=== PATIENT | female | born 1995 | race Caucasian/White ===

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

== ENCOUNTER 2017-07-18 15:23 | Emergency (ER) | payer SELFPAY ==
[2017-07-18 15:33] VITALS: BP 110/65
--- NOTE | 2017-07-18 15:52 | EDM.PDOC ---
<Jody Gallagher - Last Filed: 07/18/17 15:46> ED HPI GENERAL MEDICAL PROBLEM - General Chief Complaint: Lower Extremity Injury/Pain Stated Complaint: DOOR FELL ON HER TOE Time Seen by Provider: 07/18/17 15:43 Source of Information: Reports: Patient History Limitations: Reports: No Limitations - History of Present Illness INITIAL COMMENTS - FREE TEXT/NARRATIVE: Patient is a 22 YO female who presents today after a door fell on her right big toe. She states they were moving the door when it slipped. She states she has limited range of motion of the toe. The pain is located over the distal metatarsal of the big toe and into the MTP joint. She denies pain to other areas of the foot. She was able to ambulate into the ER on her own. She did not take anything for pain prior to arrival and she does not want anything for pain at this time. Right 1-Hallux Pain Score (Numeric/FACES): 8 - Related Data Allergies Allergy/AdvReac Type Severity Reaction Status Date / Time amoxicillin Allergy Hives Verified 07/18/17 15:33 Penicillins Allergy Hives Verified 07/18/17 15:33 Home Meds: Home Meds ALPRAZolam [Xanax] 1 tab PO BID 07/18/17 [History] Latuda. 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: vaginal delivery August 07 Psychiatric History: Reports: Anxiety, Bipolar, Depression, Suicide Attempt - Past Surgical History HEENT Surgical History: Reports: Oral Surgery, Tonsillectomy Female Surgical History: Reports: Other (See Below) Other Female Surgeries/Procedures: vaginal delivery Social & Family History - Family History Family Medical History: Noncontributory - Tobacco Use Smoking Status *Q: Former Smoker Years of Tobacco use: 1 Packs/Tins Daily: 0.5 Used Tobacco, but Quit: Yes Month/Year Tobacco Last Used: 1 year - Caffeine Use Caffeine Use: Reports: Coffee, Energy Drinks, Soda - Recreational Drug Use Recreational Drug Use: No Review of Systems - Review of Systems Review Of Systems: See Below Constitutional: Reports: No Symptoms Musculoskeletal: Reports: Foot Pain Skin: Reports: No Symptoms Neurological: Reports: No Symptoms Psychiatric: Reports: No Symptoms ED EXAM, GENERAL - Physical Exam Exam: See Below Exam Limited By: No Limitations General Appearance: Alert, WD/WN, No Apparent Distress Extremities: Other (no abrasion or laceration to the big, mild swelling noted over the MTP joint of the right foot) Neurological: Alert, Oriented, CN II-XII Intact, Normal Cognition, No Motor/ Sensory Deficits, Other (no sensory loss to the distal 1st toe, capillary refill intact <2 seconds) Psychiatric: Normal Affect, Normal Mood Skin Exam: Warm, Dry, Intact Course - Vital Signs Last Recorded V/S: Last Vital Signs Temp 36.6 C 07/18/17 15:31 Pulse 74 07/18/17 15:31 Resp 18 07/18/17 15:31 BP 110/65 07/18/17 15:31 Pulse Ox 99 07/18/17 15:31 Departure - Departure Disposition: Home, Self-Care 01 Clinical Impression: Soft tissue injury - Discharge Information Referrals: PCP,Not In Area [Primary Care Provider] - Forms: ED Department Discharge Additional Instructions: [id number] Tylenol or Motrin as needed for pain relief. You may use crutches that you have at home as needed for discomfort relief. Ice and elevate the area. Follow-up with family medicine if your symptoms do not improve much within 10 days. Please return to the ER if your symptoms change or worsen. <Aide Knapp - Last Filed: 07/18/17 17:33> ED HPI GENERAL MEDICAL PROBLEM - History of Present Illness INITIAL COMMENTS - FREE TEXT/NARRATIVE: I have seen the patient an agree with the HPI as documented by FRANCHESKA Jiang ED EXAM, GENERAL - Physical Exam Peripheral Pulses: 2+: Posterior Tibial (L), Posterior Tibial (R), Dorsalis Pedis (L), Dorsalis Pedis (R) Extremities: Normal Capillary Refill Course - Radiology Interpretation Free Text/Narrative:: Right foot: Four views of the right foot were obtained. Comparison: No prior foot exam. No fracture, dislocation or other bony abnormality is seen. No calcaneal spurs are seen. No soft tissue abnormality is appreciated. Impression: 1. No abnormality is seen on right foot exam - Re-Assessments/Exams Free Text/Narrative Re-Assessment/Exam: 07/18/17 16:02 I have seen the patient and agree with the HPI, ROS and PE as documented by FRANCHESKA Jiang. Reviewed the xray results with the patient. She has crutches at home she can use. Discharge instructions as documented. Departure - Departure Time of Disposition: 16:06 Condition: Fair
--- NOTE | 2017-07-18 17:17 | CR ---
Right foot: Four views of the right foot were obtained. Comparison: No prior foot exam. No fracture, dislocation or other bony abnormality is seen. No calcaneal spurs are seen. No soft tissue abnormality is appreciated. Impression: 1. No abnormality is seen on right foot exam. Diagnostic code #1
== END 2017-07-18 16:25 | disposition home or self-care (01) ==
LOC: JD.ED 15:23
DX: S99.921A Unspecified injury of right foot, initial encounter (principal); Z88.1 Allergy status to other antibiotic agents; Z88.0 Allergy status to penicillin; Z87.891 Personal history of nicotine dependence; W20.8XXA Other cause of strike by thrown, projected or falling object, initial encounter
CPT/HCPCS: 73630-26-RT; 73630-RT; 99283

== ENCOUNTER 2018-03-28 00:11 | Emergency (ER) | payer MEDICAID ==
[2018-03-28 00:24] VITALS: BP 116/70
[2018-03-28] MEDS ORDERED: Alum Hydrox/Mag Hydrox/Simeth 30 ML, Lidocaine 2% 15 ML PO ONE ×2 (00:44)
--- NOTE | 2018-03-28 00:44 | EDM.PDOC ---
ED HPI GENERAL MEDICAL PROBLEM - General Chief Complaint: Abdominal Pain Stated Complaint: RIGHT SIDE PAIN Time Seen by Provider: 03/28/18 00:38 - History of Present Illness INITIAL COMMENTS - FREE TEXT/NARRATIVE: 22-year-old female presents emergency room with abdominal pain. This seems to be more upper abdominal and extends into her back. This is been going on for about a month or so progressively getting worse eating or drinking does not seem to have any effect on it she had some brief nausea this evening by otherwise has not had any nausea vomiting constipation or diarrhea. She denies fevers or chills. Abdominal Pain Score (Numeric/FACES): 6 - Related Data Allergies Allergy/AdvReac Type Severity Reaction Status Date / Time amoxicillin Allergy Hives Verified 03/28/18 00:21 Penicillins Allergy Hives Verified 03/28/18 00:21 Home Meds: Home Meds ALPRAZolam [Xanax] 1 tab PO BID PRN 07/18/17 [History] Pantoprazole Sodium [Protonix] 40 mg PO Q24H #30 tablet. 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 History: vaginal delivery August 07 Psychiatric History: Reports: Anxiety, Bipolar, Depression, Suicide Attempt - Past Surgical History HEENT Surgical History: Reports: Oral Surgery, Tonsillectomy Female Surgical History: Reports: Other (See Below) Other Female Surgeries/Procedures: vaginal delivery Social & Family History - Family History Family Medical History: Noncontributory - Tobacco Use Smoking Status *Q: Current Every Day Smoker Years of Tobacco use: 1 Packs/Tins Daily: 0.2 - Caffeine Use Caffeine Use: Reports: Coffee, Energy Drinks - Recreational Drug Use Recreational Drug Use: No ED ROS GENERAL - Review of Systems Review Of Systems: See Below Constitutional: Reports: No Symptoms HEENT: Reports: No Symptoms Respiratory: Reports: No Symptoms Cardiovascular: Reports: No Symptoms GI/Abdominal: Reports: Abdominal Pain. Denies: Constipation, Diarrhea, Vomiting : Reports: No Symptoms Musculoskeletal: Reports: No Symptoms Neurological: Reports: No Symptoms Psychiatric: Reports: No Symptoms ED EXAM, GI/ABD - Physical Exam Exam: See Below Exam Limited By: No Limitations General Appearance: Alert, No Apparent Distress Throat/Mouth: Normal Inspection, Normal Lips, Normal Teeth, Normal Gums, Normal Oropharynx, Normal Voice, No Airway Compromise Head: Atraumatic, Normocephalic Neck: Normal Inspection, Supple, Non-Tender, Full Range of Motion. No: Lymphadenopathy (L), Lymphadenopathy (R) Respiratory/Chest: No Respiratory Distress, Lungs Clear, Normal Breath Sounds Cardiovascular: Regular Rate, Rhythm, No Edema, No Murmur GI/Abdominal Exam: Normal Bowel Sounds, Soft, Other (Abdominal exam is remarkable for epigastric and left upper quadrant discomfort with palpation no rigidity rebound or guarding no other appreciable abdominal discomfort identified) Back Exam: Normal Inspection, Other (He has a vague discomfort bilaterally in the upper lumbar and lower thoracic region). No: Paraspinal Tenderness, Vertebral Tenderness Neurological: Alert, Oriented, Normal Cognition Course - Vital Signs Last Recorded V/S: Last Vital Signs Temp 35.9 C 03/28/18 00:22 Pulse 60 03/28/18 00:22 Resp 18 03/28/18 00:22 BP 116/70 03/28/18 00:22 Pulse Ox 100 03/28/18 00:22 - Orders/Labs/Meds Labs: Laboratory Tests 03/28/18 03/28/18 03/28/18 Range/Units 00:30 00:30 00:55 WBC 9.99 (3.98-10.04) K/mm3 RBC 4.72 (3.98-5.22) M/mm3 Hgb 14.1 (11.2-15.7) gm/L Hct 42.1 (34.1-44.9) % MCV 89.2 (79.4-94.8) fl MCH 29.9 (25.6-32.2) pg MCHC 33.5 (32.2-35.5) g/dl RDW Std Deviation 40.3 (36.4-46.3) fL Plt Count 219 (182-369) K/mm3 MPV 10.5 (9.4-12.3) fl Neutrophils % (Manual) 67 H (40-60) % Band Neutrophils % 0 (0-10) % Lymphocytes % (Manual) 26 (20-40) % Atypical Lymphs % 0 % Monocytes % (Manual) 7 (2-10) % Eosinophils % (Manual) 0 L (0.7-5.8) % Basophils % (Manual) 0 L (0.1-1.2) Platelet Estimate Adequate Plt Morphology Comment Normal RBC Morph Comment Normal Sodium (136-145) mEq/L Potassium (3.5-5.1) mEq/L Chloride (98-107) mEq/L Carbon Dioxide (21-32) mEq/L Anion Gap (5-15) BUN (7-18) mg/dL Creatinine (0.55-1.02) mg/dL Est Cr Clr Drug Dosing mL/min Estimated GFR (MDRD) (>60) mL/min BUN/Creatinine Ratio (14-18) Glucose (74-106) mg/dL Calcium (8.5-10.1) mg/dL Total Bilirubin (0.2-1.0) mg/dL AST (15-37) U/L ALT (14-59) U/L Alkaline Phosphatase (46-116) U/L Total Protein (6.4-8.2) g/dl Albumin (3.4-5.0) g/dl Globulin gm/dL Albumin/Globulin Ratio (1-2) Lipase (73-393) U/L Urine Color Yellow (Yellow) Urine Appearance Slt cloudy H (Clear) Urine pH 6.5 (5.0-8.0) Ur Specific [place] 1.025 (1.005-1.030) Urine Protein Negative (Negative) Urine Glucose (UA) Negative (Negative) Urine Ketones Negative (Negative) Urine Occult Blood Negative (Negative) Urine Nitrite Negative (Negative) Urine Bilirubin Negative (Negative) Urine Urobilinogen 0.2 (0.2-1.0) Ur Leukocyte Esterase Negative (Negative) Urine RBC 0-5 (0-5) /hpf Urine WBC 0-5 (0-5) /hpf Ur Epithelial Cells 0-5 (0-5) /hpf Amorphous Sediment Moderate H (NOT SEEN) /hpf Urine Bacteria Not seen (FEW) /hpf Coarse Granular Casts 0-5 (0-5) /hpf Urine Mucus Rare H (FEW) /hpf Urine HCG, Qual Negative (NEGATIVE) 03/28/18 Range/Units 00:55 WBC (3.98-10.04) K/mm3 RBC (3.98-5.22) M/mm3 Hgb (11.2-15.7) gm/L Hct (34.1-44.9) % MCV (79.4-94.8) fl MCH (25.6-32.2) pg MCHC (32.2-35.5) g/dl RDW Std Deviation (36.4-46.3) fL Plt Count (182-369) K/mm3 MPV (9.4-12.3) fl Neutrophils % (Manual) (40-60) % Band Neutrophils % (0-10) % Lymphocytes % (Manual) (20-40) % Atypical Lymphs % % Monocytes % (Manual) (2-10) % Eosinophils % (Manual) (0.7-5.8) % Basophils % (Manual) (0.1-1.2) Platelet Estimate Plt Morphology Comment RBC Morph Comment Sodium 142 (136-145) mEq/L Potassium 3.8 (3.5-5.1) mEq/L Chloride 106 (98-107) mEq/L Carbon Dioxide 27 (21-32) mEq/L Anion Gap 12.8 (5-15) BUN 12 (7-18) mg/dL Creatinine 0.8 (0.55-1.02) mg/dL Est Cr Clr Drug Dosing 109.08 mL/min Estimated GFR (MDRD) > 60 (>60) mL/min BUN/Creatinine Ratio 15.0 (14-18) Glucose 93 (74-106) mg/dL Calcium 9.4 (8.5-10.1) mg/dL Total Bilirubin 0.2 (0.2-1.0) mg/dL AST 14 L (15-37) U/L ALT 23 (14-59) U/L Alkaline Phosphatase 76 (46-116) U/L Total Protein 7.5 (6.4-8.2) g/dl Albumin 3.8 (3.4-5.0) g/dl Globulin 3.7 gm/dL Albumin/Globulin Ratio 1.0 (1-2) Lipase 79 (73-393) U/L Urine Color (Yellow) Urine Appearance (Clear) Urine pH (5.0-8.0) Ur Specific [place] (1.005-1.030) Urine Protein (Negative) Urine Glucose (UA) (Negative) Urine Ketones (Negative) Urine Occult Blood (Negative) Urine Nitrite (Negative) Urine Bilirubin (Negative) Urine Urobilinogen (0.2-1.0) Ur Leukocyte Esterase (Negative) Urine RBC (0-5) /hpf Urine WBC (0-5) /hpf Ur Epithelial Cells (0-5) /hpf Amorphous Sediment (NOT SEEN) /hpf Urine Bacteria (FEW) /hpf Coarse Granular Casts (0-5) /hpf Urine Mucus (FEW) /hpf Urine HCG, Qual (NEGATIVE) Meds: Medications Discontinued Medications Generic Name Dose Route Start Last Admin Trade Name Tony PRN Reason Stop Dose Admin Al Hydroxide/Mg Hydroxide 30 0 ml 03/28/18 00:44 03/28/18 00:52 ml/ Lidocaine HCl 15 ml PO 03/28/18 00:45 45 ml ONETIME ONE Administration - Re-Assessments/Exams Free Text/Narrative Re-Assessment/Exam: 03/28/18 02:55 Patient did not have much improvement with the GI cocktail. She does not have a lot of tenderness in the right upper quadrant it's mostly epigastric and to a lesser degree left upper quadrant. Laboratory evaluation including a lipase is normal hCG is negative. The cause of this upper abdominal discomfort is unclear we will treat as though it's dyspepsia but will obtain a gallbladder ultrasound Departure - Departure Time of Disposition: 02:57 Disposition: Home, Self-Care 01 Clinical Impression: Upper abdominal pain - Discharge Information Prescriptions: Pantoprazole Sodium [Protonix] 40 mg PO Q24H #30 tablet. Sucralfate [Carafate] 1 gm PO Q6H #20 tablet Referrals: PCP,None [Primary Care Provider] - Forms: ED Department Discharge Additional Instructions: Return to the emergency room with any questions problems worsening symptoms. Reestablish with a regular provider at the clinic. Take the medications as directed. Get the gallbladder ultrasound done and you will need to follow-up in the clinic for the results of this.
[2018-03-28] MEDS ORDERED: Sucralfate Suspension 1 GM/10 ML Cup PO ONE (02:54)
== END 2018-03-28 03:15 | disposition home or self-care (01) ==
LOC: JD.ED 00:11
DX: R10.12 Left upper quadrant pain (principal); R10.13 Epigastric pain; F31.9 Bipolar disorder, unspecified; F41.9 Anxiety disorder, unspecified; F17.210 Nicotine dependence, cigarettes, uncomplicated; Z79.899 Other long term (current) drug therapy; Z88.0 Allergy status to penicillin; Z88.1 Allergy status to other antibiotic agents
CPT/HCPCS: 36415; 80053; 81001; 81025; 83690; 85007; 85027; 99284; A9270; 99283

== ENCOUNTER 2018-09-12 22:05 | Emergency (ER) | payer MEDICAID ==
[2018-09-12 22:17] VITALS: BP 114/71
== END 2018-09-13 01:32 | disposition left against medical advice (07) ==
LOC: JD.ED 22:05
DX: Z53.21 Procedure and treatment not carried out due to patient leaving prior to being seen by health care provider (principal)
CPT/HCPCS: 81001; 81003

== ENCOUNTER 2019-04-09 13:20 | Inpatient (IN) | payer OTHER, MEDICAID ==
[2019-04-09] MEDS ORDERED: Lidocaine 1% 50 ML MDV INJECT ONE (14:14)
[2019-04-09] MEDS ORDERED: Calcium Carbonate 500 MG Tab.Chew PO PRN (14:14)
[2019-04-09] MEDS ORDERED: Sodium Chloride 0.9% 10 ML Syringe FLUSH PRN (14:14)
[2019-04-09] MEDS ORDERED: Ondansetron 4 MG/2 ML SDV IVPUSH PRN (14:14)
[2019-04-09] MEDS ORDERED: Nalbuphine 10 MG/ML Syringe IVPUSH PRN (14:14)
[2019-04-09] MEDS ORDERED: Oxytocin/Lactated Ringers 10 UNIT/1,000 ML BAG IV SCH ×2 (14:15)
[2019-04-09] MEDS: Lactated Ringers 1,000 ML IV SCH ×3 (17:27→21:54)
--- NOTE | 2019-04-09 17:46 | PCM.LDHP ---
<Leeroy Kang - Last Filed: 04/09/19 17:35> L&D History of Present Illness - General Date of Service: 04/09/19 Admit Problem/Dx: Patient Status Order with Admit Dx/Problem 04/09/19 14:18 Patient Status [ADT] Routine Admission Diagnosis/Problem Admission Diagnosis/Problem Source of Information: Patient History Limitations: Reports: No Limitations - History of Present Illness Introduction:: Nanci Mccabe is a 23 year old who reports having contractions after her appointment this morning with Dr. Mercado. She states that after she got home she began feeling contractions and called in. She was told to come in. She stated that she did not measure the contractions at that time. Patient reports there was a small amount of blood visualized with the discharge, along with mucous. She denies any gushing of fluid or continuos leaking of fluid. Patient states that the contractions are mild in intensity and is currently not taking anything for pain. She denies any radiation to the back but admits that she is feeling contractions in her lower and mid abdomen. 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: Reports: Other OB/BYN History: vaginal delivery August 07 Psychiatric History: Reports: Anxiety, Bipolar, Depression, Suicide Attempt - Past Surgical History HEENT Surgical History: Reports: Oral Surgery, Tonsillectomy Female Surgical History: Reports: Other (See Below) Other Female Surgeries/Procedures: vaginal delivery Social & Family History - Family History Family Medical History: Noncontributory - Tobacco Use Smoking Status *Q: Former Smoker Used Tobacco, but Quit: Yes Month/Year Tobacco Last Used: 06/2018 Second Hand Smoke Exposure: No - Caffeine Use Caffeine Use: Reports: None - Alcohol Use Alcohol Use History: No - Recreational Drug Use Recreational Drug Use: No H&P Review of Systems - Review of Systems: Review Of Systems: See Below General: Denies: Fever, Chills, Fatigue, Weight Loss HEENT: Denies: Ear Pain, Eye Pain, Hearing Changes, Post Nasal Drip, Sinus Congestion, Sore Throat, Visual Changes Pulmonary: Denies: Shortness of Breath, Wheezing, Cough Cardiovascular: Denies: Chest Pain, Palpitations Gastrointestinal: Denies: Constipation, Diarrhea, Nausea, Vomiting Genitourinary: Denies: Burning, Pain Musculoskeletal: Reports: Other (Restless legs). Denies: Arm Pain, Back Pain, Leg Pain Skin: Denies: Pruritis, Rash, Lesions, Lumps Psychiatric: Denies: Depression, Anxiety, Suicidal Ideation, Homicidal Ideation Neurological: Denies: Dizziness, Syncope, Tingling Hematologic/Lymphatic: Denies: Anemia L&D Exam - Exam Exam: See Below - Vital Signs Vital Signs: Last Vital Signs Temp 98.9 F 04/09/19 14:11 Pulse 88 04/09/19 14:11 Resp 18 04/09/19 14:11 BP 113/70 04/09/19 14:11 Pulse Ox 98 04/09/19 14:11 Weight: 82.1 kg - OB Specific Contraction Intensity: Mild Movement: Active Heart Tones: Present Presentation: Vertex - Hill Score Hill Score Cervix Position: Midposition Hill Score Consistency: Soft Hill Score Effacement: >80% (90) Hill Score Dilation: 3-4 cm (3) Hill Score 's Station: -1 ,0 (0) Hill Score Total: 10 - Exam General: Alert, Oriented HEENT: Conjunctiva Clear, EOMI Neck: Supple, Trachea Midline Lungs: Clear to Auscultation, Normal Respiratory Effort Cardiovascular: Regular Rate, Regular Rhythm - Patient Data Lab Results Last 24 hrs: Laboratory Results - last 24 hr 04/09/19 04/09/19 Range/Units 14:33 14:33 WBC 12.77 H (3.98-10.04) K/mm3 RBC 3.55 L (3.98-5.22) M/mm3 Hgb 9.6 L D (11.2-15.7) gm/dl Hct 31.1 L (34.1-44.9) % MCV 87.6 D (79.4-94.8) fl MCH 27.0 (25.6-32.2) pg MCHC 30.9 L (32.2-35.5) g/dl RDW Std Deviation 43.3 (36.4-46.3) fL Plt Count 277 (182-369) K/mm3 MPV 10.2 (9.4-12.3) fl Neut % (Auto) 71.8 H (34.0-71.1) % Lymph % (Auto) 18.6 L (19.3-51.7) % [place] % (Auto) 7.4 (4.7-12.5) % Eos % (Auto) 0.9 (0.7-5.8) Baso % (Auto) 0.3 (0.1-1.2) % Neut # (Auto) 9.17 H (1.56-6.13) K/mm3 Lymph # (Auto) 2.38 (1.18-3.74) K/mm3 [place] # (Auto) 0.94 H (0.24-0.36) K/mm3 Eos # (Auto) 0.11 (0.04-0.36) K/mm3 Baso # (Auto) 0.04 (0.01-0.08) K/mm3 Manual Slide Review Abnormal smear Blood Type O NEGATIVE Gel Antibody Screen Positive Result Diagrams: 04/09/19 14:33 - Problem List (1) BV (bacterial vaginosis) SNOMED Code(s): 819353693 ICD Code: N76.0 - ACUTE VAGINITIS; B96.89 - OTH BACTERIAL AGENTS THE CAUSE OF DISEASES CLASSD ELSWHR Status: Acute Current Visit: No (2) Bacterial vaginosis SNOMED Code(s): 893002715 ICD Code: N76.0 - ACUTE VAGINITIS; B96.89 - OTH BACTERIAL AGENTS THE CAUSE OF DISEASES CLASSD ELSWHR Status: Acute Current Visit: No (3) Chorioamnionitis SNOMED Code(s): 43906635 ICD Code: O41.1290 - CHORIOAMNIONITIS, UNSP TRIMESTER, NOT APPLICABLE OR UNSP Status: Acute Current Visit: No Qualifiers: Fetus number: single or unspecified fetus Trimester: third trimester Qualified Code(s): O41.1230 - Chorioamnionitis, third trimester, not applicable or unspecified (4) Depressed SNOMED Code(s): 63351860 ICD Code: F32.9 - MAJOR DEPRESSIVE DISORDER, SINGLE EPISODE, UNSPECIFIED Status: Acute Current Visit: No (5) Lower back pain SNOMED Code(s): 282279317 ICD Code: M54.5 - LOW BACK PAIN Status: Acute Current Visit: No Qualifiers: Chronicity: acute Back pain laterality: bilateral Sciatica presence: without sciatica Qualified Code(s): M54.5 - Low back pain (6) Non-reassuring status SNOMED Code(s): 689459065 ICD Code: LEO0763 - Status: Acute Current Visit: No (7) Rh negative state in antepartum period SNOMED Code(s): 474505329 ICD Code: O09.899 - SUPERVISION OF OTHER HIGH RISK PREGNANCIES, UNSP TRIMESTER Status: Acute Current Visit: Yes (8) Soft tissue injury SNOMED Code(s): 494778627 ICD Code: T14.90XA - INJURY, UNSPECIFIED, INITIAL ENCOUNTER Status: Acute Current Visit: No (9) Suicidal behavior SNOMED Code(s): 514227150 ICD Code: R45.851 - SUICIDAL IDEATIONS Status: Acute Current Visit: No (10) UTI, Urinary tract infectious disease SNOMED Code(s): 71529749 ICD Code: N39.0 - URINARY TRACT INFECTION, SITE NOT SPECIFIED Status: Acute Current Visit: No (11) Upper abdominal pain SNOMED Code(s): 89067820 ICD Code: R10.10 - UPPER ABDOMINAL PAIN, UNSPECIFIED Status: Acute Current Visit: No (12) Vaginal delivery SNOMED Code(s): 639276949 ICD Code: O80 - ENCOUNTER FOR FULL-TERM UNCOMPLICATED DELIVERY Status: Acute Current Visit: Yes Problem List Initiated/Reviewed/Updated: Yes Orders Last 24hrs: Active Orders 24 hr Category Date Time Status Patient Status [ADT] Routine ADT 04/09/19 14:18 Active Activity as Tolerated [RC] PFP Care 04/09/19 14:16 Active Communication Order [RC] ASDIRECTED Care 04/09/19 14:16 Active Heart Tones [RC] ASDIRECTED Care 04/09/19 14:17 Active Notify Provider [RC] PFP Care 04/09/19 14:16 Active Notify Provider [RC] PRN Care 04/09/19 14:16 Active Peripheral IV Care [RC] . DIRECTED Care 04/09/19 14:17 Active Vital Signs [RC] PER UNIT ROUTINE Care 04/09/19 14:16 Active Regular Diet [DIET] Diet 04/09/19 Dinner Active ANTIBODY IDENTIFICATION [BBK] Stat Lab 04/09/19 14:33 Results RAPID PLASMA REAGIN,RPR [CHEM] Routine Lab 04/09/19 14:33 Received TYPE AND SCREEN [BBK] Stat Lab 04/09/19 14:33 Results Calcium Carbonate [Tums] Med 04/09/19 14:14 Active 1,000 mg PO Q2H PRN Lactated Ringers [Ringers, Lactated] 1,000 ml Med 04/09/19 14:15 Active IV ASDIRECTED Nalbuphine [Nubain] Med 04/09/19 14:14 Active 10 mg IVPUSH Q2H PRN Ondansetron [Zofran] Med 04/09/19 14:14 Active 4 mg IVPUSH Q4H PRN Oxytocin/Lactated Ringers [Pitocin in LR 10 Units/1,000 Med 04/09/19 14:15 Active ML] 10 unit in 1,000 ml IV .CONTINUOUS Oxytocin/Lactated Ringers [Pitocin in LR 10 Units/1,000 Med 04/09/19 14:15 Active ML] 10 unit in 1,000 ml IV TITRATE Sodium Chloride 0.9% [Saline Flush] Med 04/09/19 14:14 Active 10 ml FLUSH ASDIRECTED PRN Electronic Heart Tones Ext w TOCO [WOMSER] Oth 04/09/19 14:16 Ordered Routine Electronic Heart Tones Internal [WOMSER] Per Unit Oth 04/09/19 14:16 Ordered Routine Peripheral IV Insertion Adult [OM.PC] Routine Oth 04/09/19 14:16 Ordered Resuscitation Status Routine Resus Stat 04/09/19 14:14 Ordered Medication Orders Calcium Carbonate/Glycine (Tums) 1,000 mg PO Q2H PRN PRN Reason: Indigestion Lactated Ringer's (Ringers, Lactated) 1,000 mls @ 100 mls/hr IV ASDIRECTED [facility] Last Admin: 04/09/19 17:27 Dose: 100 mls/hr Oxytocin/Lactated Ringer's (Pitocin In Lr 10 Units/1,000 Ml) 10 unit in 1,000 mls @ 12 mls/hr IV TITRATE [facility]; Protocol Oxytocin/Lactated Ringer's (Pitocin In Lr 10 Units/1,000 Ml) 10 unit in 1,000 mls @ 500 mls/hr IV .CONTINUOUS [facility] Nalbuphine HCl (Nubain) 10 mg IVPUSH Q2H PRN PRN Reason: Pain Ondansetron HCl (Zofran) 4 mg IVPUSH Q4H PRN PRN Reason: Nausea/Vomiting Sodium Chloride (Saline Flush) 10 ml FLUSH ASDIRECTED PRN PRN Reason: Keep Vein Open Assessment/Plan Comment:: * Admit to labor and delivery for spontaneous labor * Routine vital checks * Allergy to amoxicillin (hives) * Normal diet as tolerated * IV Lactated Ringers, leave IV open * IV pitocin PRN, Rhogam due to Rh negative * CBC and RPR labs to be drawn [facility], 04/09/19 <Alejandro Mercado - Last Filed: 04/10/19 02:16> L&D History of Present Illness - General Admit Problem/Dx: Patient Status Order with Admit Dx/Problem 04/09/19 14:18 Patient Status [ADT] Routine Admission Diagnosis/Problem Admission Diagnosis/Problem - History of Present Illness Introduction:: Patient is admitted with an RACHEL of 04/15/2019 at 39-2/7 weeks gestational age. L&D Exam - Vital Signs Vital Signs: Last Vital Signs Temp 37.2 C 04/09/19 14:11 Pulse 88 04/09/19 14:11 Resp 18 04/09/19 14:11 BP 113/70 04/09/19 14:11 Pulse Ox 98 04/09/19 14:11 - Patient Data Lab Results Last 24 hrs: Laboratory Results - last 24 hr 04/09/19 04/09/19 04/09/19 Range/Units 14:33 14:33 14:33 WBC 12.77 H (3.98-10.04) K/mm3 RBC 3.55 L (3.98-5.22) M/mm3 Hgb 9.6 L D (11.2-15.7) gm/dl Hct 31.1 L (34.1-44.9) % MCV 87.6 D (79.4-94.8) fl MCH 27.0 (25.6-32.2) pg MCHC 30.9 L (32.2-35.5) g/dl RDW Std Deviation 43.3 (36.4-46.3) fL Plt Count 277 (182-369) K/mm3 MPV 10.2 (9.4-12.3) fl Neut % (Auto) 71.8 H (34.0-71.1) % Lymph % (Auto) 18.6 L (19.3-51.7) % [place] % (Auto) 7.4 (4.7-12.5) % Eos % (Auto) 0.9 (0.7-5.8) Baso % (Auto) 0.3 (0.1-1.2) % Neut # (Auto) 9.17 H (1.56-6.13) K/mm3 Lymph # (Auto) 2.38 (1.18-3.74) K/mm3 [place] # (Auto) 0.94 H (0.24-0.36) K/mm3 Eos # (Auto) 0.11 (0.04-0.36) K/mm3 Baso # (Auto) 0.04 (0.01-0.08) K/mm3 Manual Slide Review Abnormal smear RPR Non-reactive (NONREACTIVE) Blood Type O NEGATIVE Gel Antibody Screen Positive Result Diagrams: 04/09/19 14:33 Orders Last 24hrs: Active Orders 24 hr Category Date Time Status Patient Status Manage Transfer [TRANSFER] Routine ADT 04/10/19 02:05 Ordered Patient Status [ADT] Routine ADT 04/09/19 14:18 Active Activity as Tolerated [RC] PFP Care 04/09/19 14:16 Active Communication Order [RC] ASDIRECTED Care 04/09/19 14:16 Active Heart Tones [RC] ASDIRECTED Care 04/09/19 14:17 Active Notify Provider [RC] ASDIRECTED Care 04/09/19 21:04 Active Notify Provider [RC] PFP Care 04/09/19 14:16 Active Notify Provider [RC] PRN Care 04/09/19 14:16 Active Peripheral IV Care [RC] . DIRECTED Care 04/09/19 14:17 Active Vital Signs [RC] PER UNIT ROUTINE Care 04/09/19 14:16 Active Regular Diet [DIET] Diet 04/09/19 Dinner Active ANTIBODY IDENTIFICATION [BBK] Stat Lab 04/09/19 14:33 Results TYPE AND SCREEN [BBK] Stat Lab 04/09/19 14:33 Results Calcium Carbonate [Tums] Med 04/09/19 14:14 Active 1,000 mg PO Q2H PRN Lactated Ringers [Ringers, Lactated] 1,000 ml Med 04/09/19 14:15 Active IV ASDIRECTED Nalbuphine [Nubain] Med 04/09/19 14:14 Active 10 mg IVPUSH Q2H PRN Ondansetron [Zofran] Med 04/09/19 14:14 Active 4 mg IVPUSH Q4H PRN Oxytocin/Lactated Ringers [Pitocin in LR 10 Units/1,000 Med 04/09/19 14:15 Active ML] 10 unit in 1,000 ml IV .CONTINUOUS Oxytocin/Lactated Ringers [Pitocin in LR 10 Units/1,000 Med 04/09/19 14:15 Active ML] 10 unit in 1,000 ml IV TITRATE Sodium Chloride 0.9% [Saline Flush] Med 04/09/19 14:14 Active 10 ml FLUSH ASDIRECTED PRN diphenhydrAMINE [Benadryl] Med 04/09/19 21:04 Active 25 mg IVPUSH Q6H PRN ePHEDrine [ePHEDrine sulfate] Med 04/09/19 21:04 Active 5 mg IVPUSH ASDIRECTED PRN fentaNYL [Sublimaze] Med 04/09/19 21:04 Active 100 mcg EPIDUR Q3H PRN Electronic Heart Tones Ext w TOCO [WOMSER] Oth 04/09/19 14:16 Ordered Routine Electronic Heart Tones Internal [WOMSER] Per Unit Oth 04/09/19 14:16 Ordered Routine Peripheral IV Insertion Adult [OM.PC] Routine Oth 04/09/19 14:16 Ordered Resuscitation Status Routine Resus Stat 04/09/19 14:14 Ordered Medication Orders Calcium Carbonate/Glycine (Tums) 1,000 mg PO Q2H PRN PRN Reason: Indigestion Diphenhydramine HCl (Benadryl) 25 mg IVPUSH Q6H PRN PRN Reason: pruritis Last Admin: 04/09/19 23:12 Dose: 25 mg Ephedrine Sulfate (Ephedrine Sulfate) 5 mg IVPUSH ASDIRECTED PRN PRN Reason: Hypotension Fentanyl (Sublimaze) 100 mcg EPIDUR Q3H PRN PRN Reason: Pain Last Admin: 04/09/19 21:22 Dose: 100 mcg Lactated Ringer's (Ringers, Lactated) 1,000 mls @ 100 mls/hr IV ASDIRECTED [facility] Last Admin: 04/10/19 01:04 Dose: 100 mls/hr Infusion: 04/10/19 01:04 Dose: 100 mls/hr Admin: 04/09/19 21:54 Dose: 100 mls/hr Infusion: 04/09/19 21:54 Dose: 100 mls/hr Admin: 04/09/19 20:54 Dose: 100 mls/hr Infusion: 04/09/19 20:54 Dose: 100 mls/hr Admin: 04/09/19 17:27 Dose: 100 mls/hr Oxytocin/Lactated Ringer's (Pitocin In Lr 10 Units/1,000 Ml) 10 unit in 1,000 mls @ 12 mls/hr IV TITRATE [facility]; Protocol Last Titration: 04/09/19 23:45 Dose: 10 munits/min, 60 mls/hr Titration: 04/09/19 23:10 Dose: 8 munits/min, 48 mls/hr Titration: 04/09/19 20:10 Dose: 6 munits/min, 36 mls/hr Titration: 04/09/19 19:40 Dose: 4 munits/min, 24 mls/hr Admin: 04/09/19 19:00 Dose: 2 munits/min, 12 mls/hr Oxytocin/Lactated Ringer's (Pitocin In Lr 10 Units/1,000 Ml) 10 unit in 1,000 mls @ 500 mls/hr IV .CONTINUOUS [facility] Nalbuphine HCl (Nubain) 10 mg IVPUSH Q2H PRN PRN Reason: Pain Ondansetron HCl (Zofran) 4 mg IVPUSH Q4H PRN PRN Reason: Nausea/Vomiting Sodium Chloride (Saline Flush) 10 ml FLUSH ASDIRECTED PRN PRN Reason: Keep Vein Open Assessment/Plan Comment:: Assessment: 1. 39-2/7 week intrauterine in a 2 para 1001 female with an RACHEL of 04/15/2019. 2. Group B strep screen negative 3. Patient plans to bottle feed. 4. Patient is rubella immune.
[2019-04-09] MEDS ORDERED: Bupivacaine/fentaNYL/NS 100 ML Bag EPIDUR PRN (21:04)
[2019-04-09] MEDS ORDERED: fentaNYL 100 MCG/2 ML SDV EPIDUR PRN (21:04)
[2019-04-09] MEDS ORDERED: diphenhydrAMINE 50 MG/ML SDV IVPUSH PRN (21:04)
[2019-04-09] MEDS ORDERED: ePHEDrine 50 MG/ML SDV IVPUSH PRN (21:04)
--- NOTE | 2019-04-09 21:34 | PCM.PREANE ---
Preanesthetic Assessment - Procedure Proposed Procedure: reina - Anesthesia/Transfusion/Family Hx Anesthesia History: Prior Anesthesia Without Reaction Family History of Anesthesia Reaction: No Transfusion History: No Prior Transfusion(s) - Review of Systems General: No Symptoms Pulmonary: No Symptoms Cardiovascular: No Symptoms Gastrointestinal: No Symptoms Neurological: No Symptoms Other: Reports: None, Depression (in past), Anxiety (in past) - Physical Assessment Vital Signs: Last Vital Signs Temp 98.9 F 04/09/19 14:11 Pulse 88 04/09/19 14:11 Resp 18 04/09/19 14:11 BP 113/70 04/09/19 14:11 Pulse Ox 98 04/09/19 14:11 Height: 5 ft 7 in Weight: 82.1 kg ASA Class: 2 Mental Status: Alert & Oriented x3 Airway Class: Mallampati = 1 Dentition: Reports: Normal Dentition Thyro-Mental Finger Breadths: 3 Mouth Opening Finger Breadths: 3 ROM/Head Extension: Full Lungs: Clear to Auscultation, Normal Respiratory Effort Cardiovascular: Regular Rate, Regular Rhythm, No Murmurs - Lab Values: Laboratory Last Values WBC 12.77 K/mm3 (3.98-10.04) H 04/09/19 14:33 RBC 3.55 M/mm3 (3.98-5.22) L 04/09/19 14:33 Hgb 9.6 gm/dl (11.2-15.7) L D 04/09/19 14:33 Hct 31.1 % (34.1-44.9) L 04/09/19 14:33 MCV 87.6 fl (79.4-94.8) D 04/09/19 14:33 MCH 27.0 pg (25.6-32.2) 04/09/19 14:33 MCHC 30.9 g/dl (32.2-35.5) L 04/09/19 14:33 RDW Std Deviation 43.3 fL (36.4-46.3) 04/09/19 14:33 Plt Count 277 K/mm3 (182-369) 04/09/19 14:33 MPV 10.2 fl (9.4-12.3) 04/09/19 14:33 Neut % (Auto) 71.8 % (34.0-71.1) H 04/09/19 14:33 Lymph % (Auto) 18.6 % (19.3-51.7) L 04/09/19 14:33 [place] % (Auto) 7.4 % (4.7-12.5) 04/09/19 14:33 Eos % (Auto) 0.9 (0.7-5.8) 04/09/19 14:33 Baso % (Auto) 0.3 % (0.1-1.2) 04/09/19 14:33 Neut # (Auto) 9.17 K/mm3 (1.56-6.13) H 04/09/19 14:33 Lymph # (Auto) 2.38 K/mm3 (1.18-3.74) 04/09/19 14:33 [place] # (Auto) 0.94 K/mm3 (0.24-0.36) H 04/09/19 14:33 Eos # (Auto) 0.11 K/mm3 (0.04-0.36) 04/09/19 14:33 Baso # (Auto) 0.04 K/mm3 (0.01-0.08) 04/09/19 14:33 Manual Slide Review Abnormal smear 04/09/19 14:33 RPR Non-reactive (NONREACTIVE) 04/09/19 14:33 Blood Type O NEGATIVE 04/09/19 14:33 Gel Antibody Screen Positive 04/09/19 14:33 - Allergies Allergies/Adverse Reactions: Allergies Allergy/AdvReac Type Severity Reaction Status Date / Time amoxicillin Allergy Hives Verified 02/15/19 01:15 Penicillins Allergy Hives Verified 02/15/19 01:15 - Blood Blood Available: No - Acknowledgements Anesthesia Type Planned: Epidural Pt an Appropriate Candidate for the Planned Anesthesia: Yes Alternatives and Risks of Anesthesia Discussed w Pt/Guardian: Yes Pt/Guardian Understands and Agrees with Anesthesia Plan: Yes PreAnesthesia Questionnaire - Past Health History Medical/Surgical History: Denies Medical/Surgical History Cardiovascular History: Reports: None Respiratory History: Reports: None Gastrointestinal History: Reports: GERD (with preg) Genitourinary History: Reports: UTI, Recurrent 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 Other OB/BYN History: vaginal delivery August 07 Psychiatric History: Reports: Anxiety, Bipolar, Depression, Suicide Attempt - Past Surgical History HEENT Surgical History: Reports: Oral Surgery, Tonsillectomy Female Surgical History: Reports: Other (See Below) Other Female Surgeries/Procedures: vaginal delivery - SUBSTANCE USE Smoking Status *Q: Former Smoker Tobacco Use Within Last Twelve Months: No Second Hand Smoke Exposure: No Recreational Drug Use History: No - HOME MEDS Home Medications: Home Meds [id number]/Iron Fumarate/FA/DSS [ 19 Tablet] 1 tab .ROUTE DAILY 04/09/19 [ History] - CURRENT (IN HOUSE) MEDS Current Meds: Current Medications Calcium Carbonate/Glycine (Tums) 1,000 mg PO Q2H PRN PRN Reason: Indigestion Diphenhydramine HCl (Benadryl) 25 mg IVPUSH Q6H PRN PRN Reason: pruritis Ephedrine Sulfate (Ephedrine Sulfate) 5 mg IVPUSH ASDIRECTED PRN PRN Reason: Hypotension Fentanyl (Sublimaze) 100 mcg EPIDUR Q3H PRN PRN Reason: Pain Last Admin: 04/09/19 21:22 Dose: 100 mcg Fentanyl/Bupivacaine HCl (Fentanyl/Bupivacaine/Ns 2 Mcg-0.125% 100 Ml) 100 ml EPIDUR CONTINUOUS PRN PRN Reason: Pain Lactated Ringer's (Ringers, Lactated) 1,000 mls @ 100 mls/hr IV ASDIRECTED [facility] Last Admin: 04/09/19 20:54 Dose: 100 mls/hr Oxytocin/Lactated Ringer's (Pitocin In Lr 10 Units/1,000 Ml) 10 unit in 1,000 mls @ 12 mls/hr IV TITRATE [facility]; Protocol Last Titration: 04/09/19 20:10 Dose: 6 munits/min, 36 mls/hr Oxytocin/Lactated Ringer's (Pitocin In Lr 10 Units/1,000 Ml) 10 unit in 1,000 mls @ 500 mls/hr IV .CONTINUOUS [facility] Nalbuphine HCl (Nubain) 10 mg IVPUSH Q2H PRN PRN Reason: Pain Ondansetron HCl (Zofran) 4 mg IVPUSH Q4H PRN PRN Reason: Nausea/Vomiting Sodium Chloride (Saline Flush) 10 ml FLUSH ASDIRECTED PRN PRN Reason: Keep Vein Open Discontinued Medications Lidocaine HCl (Xylocaine 1%) 50 ml INJECT ONETIME ONE Stop: 04/09/19 14:15
[2019-04-09] MEDS ORDERED: fentaNYL/Bupivacaine/NS 2 MCG-0.125% 250 ML EPIDUR ONE (22:10)
[2019-04-10] MEDS ORDERED: Bupivacaine 0.25% 10 ML SDV ONE
[2019-04-10] MEDS: Lactated Ringers 1,000 ML IV SCH (01:04)
[2019-04-10] MEDS ORDERED: Witch Hazel Medicated Pads 40/Jar TOP PRN (02:13)
[2019-04-10] MEDS ORDERED: Acetaminophen 325 MG Tab PO PRN (02:13)
[2019-04-10] MEDS ORDERED: Docusate Sodium 100 MG Cap PO PRN (02:13)
[2019-04-10] MEDS ORDERED: Benzocaine/Menthol 20%-0.5% Spray 56 GM Canister TOP PRN (02:13)
--- NOTE | 2019-04-10 02:13 | PCM.SN ---
- Free Text/Narrative Note: Delivery note: Nanci is a 23-year-old 2 now para 2002 white female who was admitted at 39-2/7 weeks gestational age in active labor. She underwent artificial rupture membranes with resultant clear amniotic fluid. Rest and labor steadily Pitocin was started to augment labor pattern. At approximately 0130 on 2019 patient became completely dilated. She pushed approximately 2 contractions and at 0147 hrs., delivered a viable, carlos, male infant with Apgars of 8 and 9, weight of 3810 g (8 lbs. 6 oz.), a length of 20.5 inches in a right occiput anterior position over an intact perineum. The baby was placed on mom's abdomen and nose and mouth were bulb suctioned. The cord was allowed to pulsate for approximately 2 minutes and then was clamped 2 and cut by the baby's father . Cord blood was obtained. The umbilical cord had 3 vessels present. The placenta delivered in a Bailey presentation at 0154 hrs., appeared intact and complete and was discarded per patient desire. Pitocin was started after delivery of the baby. It was run at 500 mL an hour per protocol. Estimated blood loss was 100 mL. Patient plans to bottlefeed. Condition: Good.
[2019-04-10] MEDS: Ibuprofen 600 MG Tab PO PRN ×3 (03:02→18:44)
--- NOTE | 2019-04-10 08:03 | PCM48HPAN ---
Post Anesthesia Note - EVALUATION WITHIN 48HRS OF ANESTHETIC Vital Signs in Normal Range: Yes Patient Participated in Evaluation: Yes Respiratory Function Stable: Yes Airway Patent: Yes Cardiovascular Function Stable: Yes Hydration Status Stable: Yes Pain Control Satisfactory: Yes Nausea and Vomiting Control Satisfactory: Yes Mental Status Recovered: Yes Vital Signs: Last Vital Signs Temp 37.2 C 04/09/19 14:11 Pulse 88 04/09/19 14:11 Resp 18 04/09/19 14:11 BP 113/70 04/09/19 14:11 Pulse Ox 98 04/09/19 14:11 - COMMENTS/OBSERVATIONS Free Text/Narrative:: no anesthesia complications noted
[2019-04-10] MEDS ORDERED: Prenatal Multivitamin with Calcium/Folic Acid/Iron Tab PO SCH (09:00)
--- NOTE | 2019-04-10 10:15 | PCM.SN ---
- Free Text/Narrative Note: note: Patient is doing well in the period. Minimal lochia, voiding well, ambulated without problems. Nursing without concerns. Patient is afebrile, vital signs are stable Abdomen is flat, soft, uterus is below the umbilicus and is firm and nontender. Legs are nontender. Assessment: recovery going well. Plan: Routine care. Patient be discharged home within the next 24-48 hours.
[2019-04-11] MEDS: Ibuprofen 600 MG Tab PO PRN (07:32)
--- NOTE | 2019-04-11 07:59 | PCM.DCSUM1 ---
Discharge Summary - Hospital Course Free Text/Narrative:: Nanci is a 23-year-old 2 now para 2000 white female who was admitted at 39-2/7 weeks gestational age in active labor. She underwent artificial rupture membranes with resultant clear amniotic fluid. Rest and labor steadily Pitocin was started to augment labor pattern. At approximately 0130 on 2019 patient became completely dilated. She pushed approximately 2 contractions and at 0147 hrs., delivered a viable, carlos, male with Apgars of 8 and 9, weight of 3810 g (8 lbs. 6 oz.), a length of 20.5 inches in a right occiput anterior position over an intact perineum. The baby was placed on mom's abdomen and nose and mouth were bulb suctioned. The cord was allowed to pulsate for approximately 2 minutes and then was clamped 2 and cut by the baby's father . Cord blood was obtained. The umbilical cord had 3 vessels present. The placenta delivered in a Bailey presentation at 0154 hrs., appeared intact and complete and was discarded per patient desire. Pitocin was started after delivery of the baby. It was run at 500 mL an hour per protocol. Estimated blood loss was 100 mL. Patient plans to bottlefeed. Patient is normal. She is bottle feeding. No concerns noted. Lochia is minimal. Voiding well. Desires discharge home. Condition: Good. Diagnosis: Stroke: No - Discharge Data Discharge Date: 04/11/19 Discharge Disposition: Home, Self-Care 01 Condition: Good - Referral to Home Health Primary Care Physician: Alejandro Mercado MD - Patient Instructions Diet: Regular Diet as Tolerated Activity: As Tolerated (No intercourse or tampons until bleeding resolves.) Driving: May Drive Today Showering/Bathing: May Shower (May take a bath) Notify Provider of: Fever, Increased Pain, Swelling and Redness, Nausea and/or Vomiting - Discharge Plan Home Medications: Home Meds [id number]/Iron Fumarate/FA/DSS [ 19 Tablet] 1 tab .ROUTE DAILY 04/09/19 [ History] Acetaminophen [Tylenol] 650 mg PO Q4H PRN tablet 04/11/19 [Rx] Ibuprofen [Motrin] 600 mg PO Q4H PRN tablet 04/11/19 [Rx] Referrals: Alejandro Mercado MD [Primary Care Provider] - (Return to clinicDr. Arnold or Nicky wicks2 weeks) - Discharge Summary/Plan Comment DC Time >30 min.: No Discharge Summary/Plan Comment: Discharge instructions: 1. Discharge home 2. Diet, activity and follow-up discussed with patient. Recommend nursing diet with increased calories and calcium. 3. Precautions given concern increased pain, bleeding, temperature, signs/ symptoms of DVT/PE. 4. Medications per home medication was printed, discussed with and given to the patient. 5. Return to clinic-Dr. Mercado or Aria lópez nurse practitioner-[facility] in 2 weeks. Diagnosis: Term -delivered Condition: Good - Patient Data Vitals - Most Recent: Last Vital Signs Temp 36.6 C 04/11/19 06:03 Pulse 56 L 04/11/19 06:03 Resp 16 04/11/19 06:03 BP 112/72 04/11/19 06:03 Pulse Ox 98 04/11/19 06:03 Weight - Most Recent: 82.1 kg I&O - Last 24 hours: Intake & Output 04/10/19 04/11/19 04/11/19 22:59 06:59 14:59 Intake Total 60 Balance 60 Lab Results - Last 24 hrs: Laboratory Results - last 24 hr 04/10/19 Range/Units 09:10 Blood Type O NEGATIVE Gel Antibody Screen Negative Screen 1 ros/5 flds - neg RhIG Candidate? Yes Rhogam Indicated Yes, baby rh pos H Med Orders - Current: Current Medications Acetaminophen (Tylenol) 650 mg PO Q4H PRN PRN Reason: mild pain or fever Benzocaine/Menthol (Dermoplast Pain Relief [place]) 0 gm TOP ASDIRECTED PRN PRN Reason: Perineal Comfort Measure Last Admin: 04/10/19 03:03 Dose: 1 canister Docusate Sodium (Colace) 100 mg PO BID PRN PRN Reason: Constipation Ibuprofen (Motrin) 600 mg PO Q4H PRN PRN Reason: Mild pain or fever Last Admin: 04/11/19 07:32 Dose: 600 mg Prenat Multivit/[place]/Iron/Folic Ac ( Plus Iron) 1 each PO DAILY [facility] Last Admin: 04/10/19 09:13 Dose: 1 each Witch Leela (Tucks) 1 pad TOP ASDIRECTED PRN PRN Reason: Pain Last Admin: 04/10/19 03:03 Dose: 1 tub Discontinued Medications Bupivacaine HCl (Sensorcaine-Mpf 0.25%) 10 ml .ROUTE .STK-MED ONE Stop: 04/10/19 00:01 Calcium Carbonate/Glycine (Tums) 1,000 mg PO Q2H PRN PRN Reason: Indigestion Diphenhydramine HCl (Benadryl) 25 mg IVPUSH Q6H PRN PRN Reason: pruritis Last Admin: 04/09/19 23:12 Dose: 25 mg Ephedrine Sulfate (Ephedrine Sulfate) 5 mg IVPUSH ASDIRECTED PRN PRN Reason: Hypotension Fentanyl (Sublimaze) 100 mcg EPIDUR Q3H PRN PRN Reason: Pain Last Admin: 04/09/19 21:22 Dose: 100 mcg Fentanyl/Bupivacaine HCl (Fentanyl/Bupivacaine/Ns 2 Mcg-0.125% 250 Ml) 2 ml EPIDUR ONETIME ONE Stop: 04/09/19 22:11 Last Admin: 04/09/19 22:00 Dose: 2 ml Lactated Ringer's (Ringers, Lactated) 1,000 mls @ 100 mls/hr IV ASDIRECTED [facility] Last Admin: 04/10/19 01:04 Dose: 100 mls/hr Oxytocin/Lactated Ringer's (Pitocin In Lr 10 Units/1,000 Ml) 10 unit in 1,000 mls @ 12 mls/hr IV TITRATE [facility]; Protocol Last Titration: 04/09/19 23:45 Dose: 10 munits/min, 60 mls/hr Oxytocin/Lactated Ringer's (Pitocin In Lr 10 Units/1,000 Ml) 10 unit in 1,000 mls @ 500 mls/hr IV .CONTINUOUS [facility] Lidocaine HCl (Xylocaine 1%) 50 ml INJECT ONETIME ONE Stop: 04/09/19 14:15 Last Admin: 04/10/19 07:07 Dose: Not Given Nalbuphine HCl (Nubain) 10 mg IVPUSH Q2H PRN PRN Reason: Pain Ondansetron HCl (Zofran) 4 mg IVPUSH Q4H PRN PRN Reason: Nausea/Vomiting Sodium Chloride (Saline Flush) 10 ml FLUSH ASDIRECTED PRN PRN Reason: Keep Vein Open
[2019-04-11 17:59] VITALS: BP 104/72; PULSE 61
== END 2019-04-11 13:00 | disposition home or self-care (01) | DRG 807 ==
LOC: JD.OBCHECK 13:20 → JD.OB 13:20 → JD.OBCHECK 14:18 → OBSVTOIN 04-10 01:47 → JD.OB 04-10 01:48
PROVIDERS: ADMIT Obstetrics & Gynecology; ATTEND Obstetrics & Gynecology
PROC: 10E0XZZ Delivery of Products of Conception, External Approach (ICD-10-PCS; principal; 2019-04-10)
PROC: 10907ZC Drainage of Amniotic Fluid, Therapeutic from Products of Conception, Via Natural or Artificial Opening (ICD-10-PCS; 2019-04-10)
PROC: 3E0R3BZ Introduction of Anesthetic Agent into Spinal Canal, Percutaneous Approach (ICD-10-PCS; 2019-04-10)
PROC: 00HU33Z Insertion of Infusion Device into Spinal Canal, Percutaneous Approach (ICD-10-PCS; 2019-04-10)
PROC: 3E0334Z Introduction of Serum, Toxoid and Vaccine into Peripheral Vein, Percutaneous Approach (ICD-10-PCS; 2019-04-10)
DX: O26.893 Other specified pregnancy related conditions, third trimester (principal); Z37.0 Single live birth; Z67.41 Type O blood, Rh negative; Z3A.39 39 weeks gestation of pregnancy
CPT/HCPCS: 01967; 36415; 51702; 59020; 59025; 59409; 85025; 85461; 86592; 86850; 86900; 86901; A9270-GY; J1200; J2590; J2790; J3010; J3490; J7120

== ENCOUNTER 2021-05-07 14:35 | Emergency (ER) | payer MEDICAID, OTHER, SELFPAY ==
[2021-05-07] MEDS ORDERED: methylPREDNISolone Sodium Succinate 40 MG/1 ML SDV IM ONE (15:07)
[2021-05-07] MEDS ORDERED: Famotidine 20 MG Tab PO ONE (15:07)
[2021-05-07 16:41] VITALS: BP 116/83; PULSE 61
== END 2021-05-07 16:30 | disposition home or self-care (01) ==
LOC: JD.ED 14:35
DX: T78.40XA Allergy, unspecified, initial encounter (principal); Z88.0 Allergy status to penicillin
CPT/HCPCS: 96372; 99283; A9270; J2920

== ENCOUNTER 2022-06-11 14:13 | Emergency (ER) | payer MEDICAID, BC ==
[2022-06-11 15:36] VITALS: BP 106/65; PULSE 78
== END 2022-06-11 15:30 | disposition home or self-care (01) ==
LOC: JD.ED 14:13
DX: O99.891 Other specified diseases and conditions complicating pregnancy (principal); N81.9 Female genital prolapse, unspecified; Z3A.23 23 weeks gestation of pregnancy; Z88.0 Allergy status to penicillin; Z87.891 Personal history of nicotine dependence
CPT/HCPCS: 99283

== ENCOUNTER 2022-09-27 16:05 | Inpatient (IN) | payer BC, MEDICAID ==
[2022-09-27] MEDS ORDERED: Ondansetron 4 MG/2 ML SDV IVPUSH PRN (16:59)
[2022-09-27] MEDS ORDERED: Sodium Chloride 0.9% 10 ML Syringe FLUSH PRN (16:59)
[2022-09-27] MEDS ORDERED: Nalbuphine 10 MG/0.5 ML Syringe IVPUSH PRN (16:59)
[2022-09-27] MEDS ORDERED: Oxytocin/Lactated Ringers 10 UNIT/1,000 ML BAG IV SCH (17:00)
[2022-09-27] MEDS: Lactated Ringers 1,000 ML IV SCH ×2 (17:32→18:06)
[2022-09-27 17:47] LABS: BASOPHILS ABSOLUTE AUTO 0.04 K/mm3 (0.01-0.08); BASOPHILS PERCENT AUTO 0.2 % (0.1-1.2); EOSINOPHILS ABSOLUTE AUTO 0.15 K/mm3 (0.04-0.36); EOSINOPHILS PERCENT AUTO 0.8 (0.7-5.8); HEMATOCRIT 33.9 % (34.1-44.9); HEMOGLOBIN 10.7 gm/dl (11.2-15.7); IMMATURE GRAN ABSOLUTE AUTO 0.13 K/mm3 (0.00-0.10); IMMATURE GRAN PERCENT AUTO 0.7 % (<=1.0); LYMPHOCYTES ABSOLUTE AUTO 2.08 K/mm3 (1.18-3.74); LYMPHOCYTES PERCENT AUTO 11.4 % (19.3-51.7); MEAN CORPUSCULAR HEMOGLOBIN 27.2 pg (25.6-32.2); MEAN CORPUSCULAR HGB CONC 31.6 g/dl (32.2-35.5); MEAN CORPUSCULAR VOLUME 86.3 fl (79.4-94.8); MEAN PLATELET VOLUME 10.6 fl (9.4-12.3); MONOCYTES ABSOLUTE AUTO 1.37 K/mm3 (0.24-0.36); MONOCYTES PERCENT AUTO 7.5 % (4.7-12.5); NEUTROPHILS ABSOLUTE AUTO 14.55 K/mm3 (1.56-6.13); NEUTROPHILS PERCENT AUTO 79.4 % (34.0-71.1); PLATELET COUNT,PLT 252 K/mm3 (182-369); RED BLOOD CELL COUNT 3.93 M/mm3 (3.98-5.22); WHITE BLOOD CELL COUNT,WBC 18.32 K/mm3 (3.98-10.04)
[2022-09-27] MEDS ORDERED: diphenhydrAMINE 50 MG/ML SDV IVPUSH PRN (18:18)
[2022-09-27] MEDS ORDERED: ePHEDrine 50 MG/ML SDV IVPUSH PRN (18:18)
[2022-09-27] MEDS ORDERED: Bupivacaine/fentaNYL/NS 100 ML Bag EPIDUR PRN (18:18)
[2022-09-27] MEDS ORDERED: fentaNYL 100 MCG/2 ML SDV EPIDUR PRN (18:18)
[2022-09-27] MEDS ORDERED: Acetaminophen 325 MG Tab PO PRN (20:19)
[2022-09-27] MEDS ORDERED: Witch Hazel Medicated Pads 40/Jar TOP PRN ×2 (20:19)
[2022-09-27] MEDS ORDERED: Benzocaine/Menthol 20%-0.5% Spray 78 GM Cannister TOP PRN ×2 (20:19)
[2022-09-27] MEDS ORDERED: Sodium Chloride 0.9% 10 ML Syringe FLUSH SCH (21:00)
[2022-09-28] MEDS: Ibuprofen 600 MG Tab PO PRN ×2 (06:41→14:28)
[2022-09-28] MEDS ORDERED: Hydrocortisone 1% Crm 30 GM Tube TOP PRN (11:17)
[2022-09-28 19:57] VITALS: BP 113/65; PULSE 63
== END 2022-09-28 20:40 | disposition home or self-care (01) | DRG 560 ==
LOC: JD.OBCHECK 16:05 → JD.OB 16:11 → JD.OBCHECK 17:19 → JD.OB 17:20 → OBSVTOIN 18:43 → JD.OB 18:44
PROVIDERS: ADMIT Family Medicine; ATTEND Family Medicine
PROC: 10E0XZZ Delivery of Products of Conception, External Approach (ICD-10-PCS; principal; 2022-09-27)
PROC: 10907ZC Drainage of Amniotic Fluid, Therapeutic from Products of Conception, Via Natural or Artificial Opening (ICD-10-PCS; 2022-09-27)
PROC: 3E0334Z Introduction of Serum, Toxoid and Vaccine into Peripheral Vein, Percutaneous Approach (ICD-10-PCS; 2022-09-27)
DX: O26.893 Other specified pregnancy related conditions, third trimester (principal); Z67.41 Type O blood, Rh negative; O69.81X0 Labor and delivery complicated by cord around neck, without compression, not applicable or unspecified; Z3A.39 39 weeks gestation of pregnancy; Z37.0 Single live birth; Z98.890 Other specified postprocedural states; Z88.1 Allergy status to other antibiotic agents; Z88.0 Allergy status to penicillin; Z79.899 Other long term (current) drug therapy; Z90.89 Acquired absence of other organs
CPT/HCPCS: 36415; 36430; 59025; 59409; 85025; 85461; 86592; 86850; 86870; 86900; 86901; A9270-GY; J1200; J2590; J2790; J3010; J7120